=== PATIENT | male | born 1965 | race Caucasian/White ===

== ENCOUNTER 2023-03-28 11:56 | Emergency (ER) | payer MEDICARE, MEDICAID ==
[~2023-03-28] VITALS: Ht 170.2 cm; Wt 75.0 kg
[~2023-03-28 11:56] MED LIST: DIVA-112 PO; QUET400T PO
[2023-03-28 12:05] VITALS: BP 140/85; PULSE 72; RESP 18; TEMP 98.3
[2023-03-28] MEDS ORDERED: RISP3TAB35 PO (12:21)
[2023-03-28] MEDS ORDERED: LITH600C5 PO (12:21)
[2023-03-28] MEDS ORDERED: LITH300C3 PO (12:21)
[2023-03-28] MEDS ORDERED: GABA800T9 PO (12:21)
[2023-03-28] MEDS ORDERED: ATOR20TA65 PO (12:21)
[2023-03-28] MEDS ORDERED: AMLO5TAB66 PO (12:21)
[2023-03-28] MEDS ORDERED: QUET25TA36 PO (12:21)
== END 2023-03-28 12:57 | disposition left against medical advice (07) ==
LOC: EMS 11:56
DX: F31.9 Bipolar disorder, unspecified (principal); F10.20 Alcohol dependence, uncomplicated; Z59.00 Homelessness unspecified
CPT/HCPCS: 99281; Z7502

== ENCOUNTER 2024-08-19 19:59 | Inpatient (IN) | payer MEDICARE, MEDICAID ==
[~2024-08-19] VITALS: Ht 170.2 cm; Wt 69.9 kg
[~2024-08-19 19:59] MED LIST changes: +AMLO5TAB66 PO; +ATOR20TA65 PO; +GABA-1554 PO; +LITH300C3 PO; +LITH600C5 PO; +QUET25TA36 PO; +RISP3TAB35 PO
[2024-08-19] MEDS ORDERED: TUBERCULIN, PURIFIED PROTEIN DERIVATIVE 5 TU/0.1 ML SYRINGE ID ONE (21:45)
[2024-08-19] MEDS ORDERED: LOPERAMIDE HCL 2 MG CAPSULE PO PRN (21:45)
[2024-08-19] MEDS ORDERED: MAGNESIUM HYDROXIDE SUSPENSION 30 ML UDCUP PO PRN (21:45)
[2024-08-19] MEDS ORDERED: MAG HYDROX/ALUMINUM HYD/SIMETH ES 30 ML SUSPENSION UDCUP PO PRN (21:45)
[2024-08-19] MEDS ORDERED: ZOLPIDEM TARTRATE 10 MG TABLET PO PRN (21:45)
[2024-08-19] MEDS ORDERED: PROMETHAZINE HCL 25 MG TABLET PO PRN (21:45)
[2024-08-19] MEDS ORDERED: GuaiFENesin/D-METHORPHAN [SUGAR-FREE] 200-20MG/10 ML SYRUP UDCUP PO PRN (21:45)
[2024-08-19] MEDS ORDERED: MELATONIN 5 MG TABLET PO PRN (21:45)
[2024-08-19 21:50] LABS: GLUCOMETER DEV NAME(LOC) POC.BV; POC SARS-COV2 AG, FIA NEGATIVE (NEGATIVE)
[2024-08-20 02:17] VITALS: BP 116/62; PULSE 65; RESP 18; TEMP 97.6; O2SAT 96
[2024-08-20 04:00] VITALS: BP 116/62; PULSE 65; RESP 18; TEMP 97.6; O2SAT 96
[2024-08-20] MEDS ORDERED: PNEUMOCOCCAL VACCINE POLYVALENT 0.5 ML SYRINGE [PPSV23] IM. ONE (04:30)
[2024-08-20 08:37] LABS: PLATELET COUNT (AUTO) 219 K/uL (150-450); RED BLOOD CELL COUNT(AUTO) 4.00 MIL/uL (4.50-5.90); RED CELL DISTRIBUTION WIDTH 14.1 % (11.5-14.5); WHITE BLOOD COUNT (AUTO) 6.0 K/uL (4.5-11.0)
[2024-08-20 08:38] VITALS: BP 112/64; PULSE 67; RESP 17; TEMP 96.7; O2SAT 97
[2024-08-20 09:38] LABS: ASPARTATE AMINOTRANSFERASE 21 U/L (15-37); CALCIUM, TOTAL 9.2 mg/dL (8.8-10.5); CHOL/HDL RATIO 2.7 (4.2-7.3); CREATININE 0.99 mg/dL (0.60-1.30); GLOMERULAR FILTR. RATE CALC > 60 mL/min (>60); GLUCOSE,RANDOM 89 mg/dL (70-110); LDL CHOL (CALC.) 57 mg/dL (0-130); SODIUM SERUM 144 mmol/L (136-145); TOTAL PROTEIN, SERUM 5.7 g/dL (6.4-8.2); UREA NITROGEN, BLOOD 11 mg/dL (7-18)
[2024-08-20] MEDS: DIVALPROEX SODIUM 500 MG ER TABLET PO SCH (10:09)
[2024-08-20] MEDS: MULTIVITAMINS WITH MINERALS, THERAPEUTIC TABLET PO SCH (10:09)
[2024-08-20] MEDS: NALTREXONE HCL 50 MG TABLET PO SCH (10:09)
[2024-08-20] MEDS: GABAPENTIN 400 MG CAPSULE PO SCH (10:09)
[2024-08-20] MEDS: FOLIC ACID 1 MG TABLET PO SCH (10:09)
[2024-08-20] MEDS: THIAMINE 100 MG TABLET PO SCH (10:09)
[2024-08-20] MEDS ORDERED: OLANZapine 5 MG RAPDIS TABLET PO PRN (18:00)
[2024-08-20 20:34] VITALS: BP 114/78; PULSE 60; RESP 16; TEMP 97.5; O2SAT 97
[2024-08-20] MEDS ORDERED: LITHIUM CARBONATE 600 MG CAPSULE PO SCH (21:00)
[2024-08-20] MEDS: LITHIUM CARBONATE 300 MG CAPSULE PO SCH (22:21)
[2024-08-20] MEDS: OLANZapine 5 MG RAPDIS TABLET PO SCH (22:24)
[2024-08-21 08:25] VITALS: BP 101/62; PULSE 60; RESP 17; TEMP 97.1; O2SAT 96
[2024-08-21] MEDS: OLANZapine 10 MG RAPDIS TABLET PO SCH (20:31)
[2024-08-21 20:35] VITALS: BP 113/65; PULSE 45; RESP 16; TEMP 98.8; O2SAT 98
[2024-08-22 08:22] LABS: VALPROIC ACID 79.0 mcg/mL (50-100)
[2024-08-22 08:40] VITALS: BP 103/61; PULSE 60; RESP 18; TEMP 98.1; O2SAT 99
[2024-08-22] MEDS ORDERED: DIVA-153 PO ×2 (13:51→21:22)
[2024-08-22] MEDS ORDERED: FLUO-418 PO ×2 (13:51→21:22)
[2024-08-22] MEDS ORDERED: NALT50TA33 PO (13:51)
[2024-08-22] MEDS ORDERED: LITH300C3 PO ×2 (13:51→21:22)
[2024-08-22] MEDS ORDERED: OLAN10TA26 PO ×2 (13:51→21:22)
[2024-08-22] MEDS ORDERED: GABA-1201 PO ×2 (13:51→21:22)
[2024-08-22] MEDS ORDERED: MELA5TAB40 PO ×2 (13:51→21:22)
[2024-08-22 20:29] VITALS: BP 112/67; PULSE 74; RESP 17; TEMP 98.4; O2SAT 97
[2024-08-22] MEDS: LITHIUM CARBONATE 300 MG CAPSULE PO SCH (20:53)
[2024-08-22 22:03] VITALS: RESP 18; O2SAT 97
[2024-08-22] MEDS: ACETAMINOPHEN 325 MG TABLET PO PRN (22:07)
[2024-08-22 23:07] VITALS: RESP 18; O2SAT 97
[2024-08-23 08:15] VITALS: BP 110/79; PULSE 67; RESP 18; TEMP 97.3; O2SAT 96
== END 2024-08-23 10:35 | disposition home or self-care (01) | DRG 885 ==
LOC: B2X 21:44 → B2S 08-20 10:30
PROVIDERS: ADMIT Psychiatry & Neurology Psychiatry; ATTEND Psychiatry & Neurology Psychiatry
PROC: GZHZZZZ Group Psychotherapy (ICD-10-PCS; principal; 2024-08-20)
PROC: GZ58ZZZ Individual Psychotherapy, Cognitive-Behavioral (ICD-10-PCS; 2024-08-20)
PROC: GZ56ZZZ Individual Psychotherapy, Supportive (ICD-10-PCS; 2024-08-21)
DX: F25.9 Schizoaffective disorder, unspecified (principal); R45.851 Suicidal ideations; Z59.00 Homelessness unspecified; E46 Unspecified protein-calorie malnutrition; I10 Essential (primary) hypertension; F10.21 Alcohol dependence, in remission; F31.9 Bipolar disorder, unspecified; Z20.822 Contact with and (suspected) exposure to COVID-19; E78.5 Hyperlipidemia, unspecified; Z91.148 Patient's other noncompliance with medication regimen for other reason; Z89.512 Acquired absence of left leg below knee; Z79.899 Other long term (current) drug therapy; Z68.24 Body mass index [BMI] 24.0-24.9, adult; D64.9 Anemia, unspecified
CPT/HCPCS: 80053; 80061; 80164; 80178; 83036; 84439; 84443; 85025; 86592